=== PATIENT | male | born 1975 | race Caucasian/White ===

== ENCOUNTER → 2016-06-10 | Outpatient (CLI) | payer OTHER ==
[~2016-06-10] MED LIST: ALEVE220 M2 PO; BACTRIM,SEPT1 TABLET PO; CLEOCIN300 MG PO; CYCLOBENZAPRINE 10 M; DICLOFENAC SODI75 MG; FLOMAX0.4 MG PO; FLONASE16 G1 BOTH NARES; IBUPROFEN600 MG PO; IRON325 MG PO; METHADONE10 MG PO; MOBIC15 MG PO; MORPHINE SULFAT15 M1 PO; MOTRIN; MOTRIN IB200 MG; MOTRIN600 MG PO; MOTRIN800 MG PO; MUCINEX D ER T1 EACH PO; NAPROXEN500 MG PO; NOHOMEMEDS; OXAYDO5 MG PO; PERCOCET 5/31 TABLET PO; TYLENOL325 M1; ULTRAM50 MG PO; ZOFRAN8 MG PO; ZYVOX600 MG PO
== END | disposition home or self-care (01) ==
LOC: RAD 12:04
DX: M43.10 Spondylolisthesis, site unspecified (principal); M51.36 Other intervertebral disc degeneration, lumbar region
CPT/HCPCS: 72120